=== PATIENT | female | born 1955 | race Caucasian/White ===

== ENCOUNTER 2016-11-12 14:36 | Inpatient (IN) | payer OTHER ==
[~2016-11-12] VITALS: Ht 160 cm; Wt 82.6 kg
[2016-11-12] MEDS ORDERED: ONDANSETRON 2MG/ML, 2ML ONE (15:24)
[2016-11-12] MEDS ORDERED: METOCLOPRAMIDE 5 MG/ML, 2ML ONE (15:24)
[2016-11-12] MEDS ORDERED: LABETALOL 5MG/ML, 20ML ONE (15:24)
[2016-11-12] MEDS ORDERED: DIPHENHYDRAMINE 50 MG/ML, 1ML ONE (15:24)
[2016-11-12 15:29] LABS: HEMOGLOBIN 12.8 g/dL (11.7-16.4)
[2016-11-12] MEDS ORDERED: SODIUM CHLORIDE 0.9% 1,000ML IVBOLUS ONE (15:30)
[2016-11-12] MEDS ORDERED: METOCLOPRAMIDE 5 MG/ML, 2ML IVPush ONE (15:30)
[2016-11-12] MEDS ORDERED: ONDANSETRON 2MG/ML, 2ML IVPush ONE (15:30)
[2016-11-12] MEDS ORDERED: LABETALOL 5MG/ML, 20ML IVPush ONE (15:30)
[2016-11-12] MEDS ORDERED: DIPHENHYDRAMINE 50 MG/ML, 1ML IVPush ONE (15:30)
[2016-11-12 15:42] LABS: ASPARTATE AMINO TRANSFERASE 28 U/L (15-37); BLOOD UREA NITROGEN 18 mg/dL (7-18)
[2016-11-12 15:57] LABS: IS PT STATUS REG ER OR PRE ER? YES
[2016-11-12] MEDS: INSULIN REGULAR 100 UNITS/ML, 3ML VIAL SQ-INSULIN SCH ×2 (18:00→20:55)
[2016-11-12] MEDS ORDERED: HYDROcodone/APAP 5/325 TABLET PO PRN (18:00)
[2016-11-12] MEDS: SODIUM CHLORIDE 0.9% 1,000 ML IV SCH (18:00)
[2016-11-12] MEDS ORDERED: DOCUSATE 100 MG CAPSULE PO PRN (18:00)
[2016-11-12] MEDS ORDERED: hydrALAzine 20 MG/ML, 1ML IV PRN (18:00)
[2016-11-12] MEDS ORDERED: ONDANSETRON ODT 4 MG PO PRN (18:00)
[2016-11-12] MEDS ORDERED: LABETALOL 5MG/ML, 20ML IV PRN (18:00)
[2016-11-12] MEDS ORDERED: BISACODYL 10 MG SUPP PR PRN (18:00)
[2016-11-12] MEDS ORDERED: ONDANSETRON 2MG/ML, 2ML IVP PRN (18:00)
[2016-11-12] MEDS ORDERED: POLYETHYLENE GLYCOL 17 GM PACKET PO PRN (18:00)
[2016-11-12] MEDS ORDERED: MORPHINE SULFATE 4 MG/ML, 1ML IVPush PRN (18:00)
[2016-11-12] MEDS ORDERED: ACETAMINOPHEN 325 MG TABLET PO PRN (18:00)
[2016-11-12 18:13] VITALS: BP 175/81
[2016-11-12 18:22] VITALS: BP 175/81
[2016-11-12 19:35] VITALS: BP 174/77
[2016-11-12 22:14] LABS: DAU SCREEN DISCLAIMER
[2016-11-12 23:44] LABS: IS PT STATUS REG ER OR PRE ER? NO
[2016-11-13 00:16] VITALS: BP 125/72
[2016-11-13] MEDS: SODIUM CHLORIDE 0.9% 1,000 ML IV SCH ×3 (02:38→21:47)
[2016-11-13 05:54] LABS: HEMOGLOBIN 10.1 g/dL (11.7-16.4)
[2016-11-13 06:13] LABS: ASPARTATE AMINO TRANSFERASE 17 U/L (15-37); BLOOD UREA NITROGEN 22 mg/dL (7-18)
[2016-11-13 06:34] LABS: IS PT STATUS REG ER OR PRE ER? NO
[2016-11-13] MEDS: INSULIN REGULAR 100 UNITS/ML, 3ML VIAL SQ-INSULIN SCH ×4 (07:00→21:00)
[2016-11-13 07:13] VITALS: BP 119/67
[2016-11-13 14:00] VITALS: BP 147/68
[2016-11-13] MEDS: CEFTRIAXONE PMX 1GM/50ML 50 ML IV SCH (15:46)
[2016-11-13] MEDS ORDERED: POTASSIUM CHLORIDE 20 MEQ TAB.ER.PRT PO ONE (17:30)
[2016-11-13 17:32] LABS: C-REACTIVE PROTEIN, QUANT 0.3 mg/dL (0.02-0.49)
[2016-11-13 19:50] VITALS: BP_SYST 173; BP_SYST 185; BP_DIAS 76; BP_DIAS 95
[2016-11-13] MEDS: ATORVASTATIN 40 MG TABLET PO SCH (21:46)
[2016-11-14] VITALS (7 sets, daily range): BP systolic 145–235; BP diastolic 79–104
[2016-11-14] MEDS ORDERED: hydrALAzine 20 MG/ML, 1ML ONE (01:08)
[2016-11-14] MEDS ORDERED: LABETALOL 5MG/ML, 20ML IVPush ONE (01:30)
[2016-11-14] MEDS ORDERED: hydrALAzine 20 MG/ML, 1ML IV ONE (01:30)
[2016-11-14] MEDS: ASPIRIN 325 MG TABLET PO SCH (05:32)
[2016-11-14] MEDS: SODIUM CHLORIDE 0.9% 1,000 ML IV SCH ×2 (06:05→18:06)
[2016-11-14] MEDS: INSULIN REGULAR 100 UNITS/ML, 3ML VIAL SQ-INSULIN SCH ×4 (07:00→21:30)
[2016-11-14 08:47] LABS: BLOOD UREA NITROGEN 17 mg/dL (7-18)
[2016-11-14] MEDS: CEFTRIAXONE PMX 1GM/50ML 50 ML IV SCH (15:43)
[2016-11-14] MEDS: PIPERACILLIN/TAZO/PMX 3.375GM 50 ML IV SCH (18:06)
[2016-11-14] MEDS: ATORVASTATIN 40 MG TABLET PO SCH (21:29)
[2016-11-15] MEDS: PIPERACILLIN/TAZO/PMX 3.375GM 50 ML IV SCH ×2 (00:55→06:00)
[2016-11-15] MEDS: SODIUM CHLORIDE 0.9% 1,000 ML IV SCH ×2 (02:00→10:00)
[2016-11-15] MEDS ORDERED: TRAZODONE 50MG TABLET PO ONE (02:30)
[2016-11-15 03:05] VITALS: BP 215/98
[2016-11-15] MEDS ORDERED: HALOPERIDOL 5 MG/ML IM ONE (05:00)
[2016-11-15] MEDS: ASPIRIN 325 MG TABLET PO SCH (06:00)
[2016-11-15] MEDS: INSULIN REGULAR 100 UNITS/ML, 3ML VIAL SQ-INSULIN SCH ×2 (07:00→11:00)
[2016-11-15 07:06] VITALS: BP 179/105
[2016-11-15] MEDS ORDERED: CEFTAZIDIME PMX 2 GM/50ML 50 ML IV SCH (08:30)
[2016-11-15] MEDS ORDERED: LABETALOL 5MG/ML, 20ML IVPush PRN (08:30)
[2016-11-15] MEDS ORDERED: CIPROFLOXACIN 250 MG TABLET PO SCH (09:00)
[2016-11-15 11:56] LABS: HEMOGLOBIN 12.9 g/dL (11.7-16.4)
[2016-11-16] MEDS ORDERED: ASPIRIN 81 MG TABLET EC PO SCH (06:00)
== END 2016-11-15 13:22 | disposition left against medical advice (07) | DRG 64 ==
LOC: ED 15:36 → EDIP 16:26 → 4EST 17:55
PROVIDERS: ADMIT Hospitalist; ATTEND Hospitalist
PROC: 0T9B70Z Drainage of Bladder with Drainage Device, Via Natural or Artificial Opening (ICD-10-PCS; principal; 2016-11-12)
DX: I63.9 Cerebral infarction, unspecified (principal); N17.0 Acute kidney failure with tubular necrosis; E44.1 Mild protein-calorie malnutrition; E87.1 Hypo-osmolality and hyponatremia; N39.0 Urinary tract infection, site not specified; I16.1 Hypertensive emergency; E86.0 Dehydration; E11.21 Type 2 diabetes mellitus with diabetic nephropathy; E11.319 Type 2 diabetes mellitus with unspecified diabetic retinopathy without macular edema; E11.22 Type 2 diabetes mellitus with diabetic chronic kidney disease; I12.9 Hypertensive chronic kidney disease with stage 1 through stage 4 chronic kidney disease, or unspecified chronic kidney disease; N18.9 Chronic kidney disease, unspecified; E66.9 Obesity, unspecified; Z53.21 Procedure and treatment not carried out due to patient leaving prior to being seen by health care provider; E86.1 Hypovolemia; B96.20 Unspecified Escherichia coli [E. coli] as the cause of diseases classified elsewhere; E11.65 Type 2 diabetes mellitus with hyperglycemia; E87.8 Other disorders of electrolyte and fluid balance, not elsewhere classified; R31.9 Hematuria, unspecified; Z68.32 Body mass index [BMI] 32.0-32.9, adult; Z80.8 Family history of malignant neoplasm of other organs or systems; Z83.3 Family history of diabetes mellitus; Z91.041 Radiographic dye allergy status; Z91.018 Allergy to other foods
CPT/HCPCS: 36415; 70450; 70551; 71010; 74000; 74176; 80048; 80053; 80061; 80076; 80307; 81001; 82140; 82607; 82746; 82962; 83036; 83735; 84100; 84484; 85025; 85610; 85651; 85730; 86140; 87077; 87086; 87186; 93005; 93306; 93880; 93975; 96361; 96374; 96375; J0696; J1815; J2405; J2543; J0360; J1200; J2765; J7030